=== PATIENT | female | born 1985 | race African-American/Black ===

== ENCOUNTER 2025-04-02 19:48 | Emergency (ER) | payer OTHER, SELFPAY ==
[2025-04-02 19:51] VITALS: BP 150/116
--- NOTE | 2025-04-02 20:46 | EDRN ---
it is now increased. Pt has pain radiating down her entire leg. Pt moves leg with assistance from . Pt has tingling and numbness. Unable to bear weight.
[2025-04-03] MEDS: TYLENOL 1000 MG PO (00:34)
[2025-04-03] MEDS: DECADRON 10 MG PO (00:34)
[2025-04-03] MEDS: TORADOL 30 MG IM (00:39)
--- NOTE | 2025-04-03 01:34 | ED.GENMED ---
History of Present Illness
General
Chief Complaint: Fall
Source: patient
Exam Limitations: none
Time Seen by Provider: 04/02/25 23:05
Nursing documentation reviewed up to this point in time: agreed with
History of Present Illness
History of Present Illness:
40-year-old female presenting to the emergency department after tripping down 4 steps hurt the left side of her low back. Has had some ongoing low back pain chronically as well. Is in the process of following up for this as an outpatient. Denies
any numbness or weakness does have some tingling and shooting pain down the left leg. Denies any trouble with bowel or bladder function did not hit her head did not lose consciousness not on blood thinners.
Review of Systems
Review of Systems
Allergies reviewed?: Yes
All Other Systems: ROS reviewed and negative except as documented in HPI and ROS
Phy Exam
Physical Exam
Physical Exam:
GENERAL: Alert , in no apparent distress
EYE: pupils equal and reactive
NECK: Supple, no significant adenopathy.
ENT: o/p clr, mmm.
CARDIAC: Regular rate and rhythm .
LUNGS: Clear breath sounds bilaterally, no acute respiratory distress, no wheezes/rales/rhonchi
ABDOMEN: Soft, without focal tenderness, no r/g, no cvat
NEUROLOGICAL: Alert and oriented, no focal neuro deficits
SKIN: Warm and dry, skin intact.
MUSCULOSKELETAL: No edema, well perfused.
PSYCH: Normal and appropriate interaction.
Course
Orders/Labs/Results
Orders:
Orders
04/02/25 23:57
Acetaminophen [Tylenol] 1,000 mg PO NOW STA
Dexamethasone Pf [Decadron] 10 mg PO NOW STA
Ketorolac [Toradol] 30 mg IM NOW STA
04/03/25 00:15
CR Hip - LT w/wo Pel 2-3 Vw* Urgent
Reason For Exam: hip back pain after fall down 5 steps
Include a pelvis x-ray?: Yes
CR Lumbar Spine 2 Or 3 Views Urgent
Reason For Exam: low back pain
Vital Signs
Initial and Last Documented VS:
Initial Vital Signs
Temp Pulse Resp BP Pulse Ox
98.2 F 71 16 150/116 100
04/02/25 19:51 04/02/25 19:51 04/02/25 19:51 04/02/25 19:51 04/02/25 19:51
Last Documented Vital Signs
Temp Pulse Resp BP Pulse Ox
98.2 F 71 16 150/116 100
04/02/25 19:51 04/02/25 19:51 04/02/25 19:51 04/02/25 19:51 04/03/25 01:34
MDM/Problems Addressed
MDM/Problems Addressed:
40-year-old female presenting to the emergency department today after tripping down 4 carpeted steps mainly hitting her left low back did not hit her head did not lose consciousness. On arrival vital signs normal patient no distress patient able to
move the left lower extremity neuro vastly intact. No extremity pain otherwise no red flag symptoms of low back pain. X-rays without signs of acute fracture. Patient was given medications here with improving symptoms otherwise will follow-up
closely as an outpatient. Return precautions given.
*Pulse Oximetry
SaO2: 100
Oxygen Mode of Delivery: Room air
Patient hypoxic: no (100)
*Critical Care Note
Total Time (30-74mins, 75-104mins- exclusive of procedures): Not Applicable
ED Attending Note
-
Portions of this chart may have been created with voice recognition software.� Occasional wrong word or��sound alike� substitutions may have occurred due to the inherent limitations of voice recognition software.
Discharge Plan
Departure
Patient Disposition: Home (Routine Discharge)
Date of Disposition: 04/03/25
Time of Disposition: 01:34
Patient with high blood pressure during this ER visit?: No
Condition: Good
Covid-19: Not Applicable
Discharge Problem:
Back pain
Instructions: Low back pain - ED (DC)
Prescriptions:
New
cyclobenzaprine 10 mg tablet
10 mg PO HS PRN (Reason: muscle spasm) Qty: 10 0RF
prednisone 20 mg tablet
40 mg PO DAILY 4 Days Qty: 8 0RF
Referrals:
Satnam Membreno MD [Active, Anesthesiology] - Follow up in 10 days
Lupe Johnson DO [Family Provider]
Activity Restrictions/Additional Instructions:
You came to the emergency department today with concerns of back pain. Here your reassuring assessment. Please follow closely as an outpatient and take the prescribed medications. Return for any worsening, new or concerning symptoms.
Interventions
Interventions:
*General Assessment Last Done: 04/02/25 20:37
*Neglect/Abuse Screening Last Done: 04/02/25 20:37
*ED COVID-19 Vaccine History Last Done: 04/02/25 20:37
*ED Influenza Vaccine History Last Done: 04/02/25 20:37
*Risk Screen - Suicide (C-SSRS) Last Done: 04/02/25 20:37
ED-Musculoskeletal Assessment Last Done: 04/02/25 20:37
ED- Neurological Assessment Last Done: 04/02/25 20:37
ED-Skin Assessment Last Done: 04/02/25 20:37
Discharge Date and Time
Print Language: [id number]
[2025-04-03 02:15] VITALS: BP 138/78
== END 2025-04-03 02:20 | disposition home or self-care (01) ==
LOC: EMR 19:48
PROVIDERS: EMERGENCY PHYSICIAN Emergency Medicine; FAMILY PHYSICIAN Family Medicine
DX: M54.50 Low back pain, unspecified (principal); W10.9XXA Fall (on) (from) unspecified stairs and steps, initial encounter
CPT/HCPCS: 96372; 99284; 72100; 73502